=== PATIENT | female | born 1965 | race Caucasian/White ===

== ENCOUNTER 2016-08-15 22:42 | Emergency (ER) | payer OTHER ==
[~2016-08-15] VITALS: Ht 175.3 cm; Wt 76.1 kg
[~2016-08-15 22:42] MED LIST: ALBU6.7H INH; PRED20 PO; PRED50TA PO
[2016-08-15 22:59] VITALS: BP 133/88; PULSE 73; RESP 20; TEMP 98.2; O2SAT 98
--- NOTE | 2016-08-16 00:15 | PD ---
HPI Chief Complaint: Headache Time Seen by Provider: 23:31 Travel History International Travel<30 days: No Contact w/Intl Traveler<30days: No Traveled to known affect area: No History of Present Illness HPI The patient is a 50-year-old female that complains of a gradual onset headache beginning at 5:30 this morning on her left frontal and behind her left eye. She states it sometimes goes to the occipital area on the left. She does have photophobia without phonophobia. She denies any fever. She does have some nausea without vomiting. She states she may have some diarrhea, her stools are slightly loose. She smokes one pack a day. She denies any focal neurologic change. She denies any recent trauma. [facility] Past Medical History Asthma: Yes (as child) Depression: Yes Cancer: No Cardiovascular Problems: No Diminished Hearing: No Genitourinary: No Immune Disorder: No Musculoskeletal: No Neurologic: No Psychiatric: Yes (depression) Reproductive: No Tetanus Vaccination: Unknown Influenza Vaccination: No ?: Not Past Surgical History Appendectomy: Yes Cardiac Surgery: No Ear Surgery: No Endocrine Surgery: No Eye Surgery: No Genitourinary Surgery: No Gynecologic Surgery: No Oral Surgery: No Thoracic Surgery: No Other Surgery: Yes (appendix, lumpectomy rt. breast'92,left thumb'96) Social History Alcohol Use: Yes (OCC) Tobacco Use: Yes (ONE PPD) Substance Use: No Allergies-Medications (Allergen,Severity, Reaction): Coded Allergies: Penicillin (Verified Allergy, Severe, RASH, 08/15/16) Morphine (Verified Allergy, Intermediate, MAKES ME ILL, 08/15/16) Reported Meds & Prescriptions Reported Meds & Active Scripts Active No Active Prescriptions or Reported Medications Review of Systems Except as stated in HPI: all other systems reviewed are Neg Physical Exam Narrative GENERAL: Well-nourished, well-developed patient in moderate apparent distress with her left-sided headache. Her vital signs are normal. SKIN: Warm and dry. HEAD: Normocephalic. EYES: No scleral icterus. No injection or drainage. NECK: Supple, trachea midline. No JVD or lymphadenopathy. There is no meningismus and the patient can flex her neck so that the chin touches chest without any problem. CARDIOVASCULAR: Regular rate and rhythm without murmurs, gallops, or rubs. RESPIRATORY: Breath sounds equal bilaterally. No accessory muscle use. GASTROINTESTINAL: Abdomen soft, non-tender, nondistended. MUSCULOSKELETAL: No cyanosis, or edema. BACK: Nontender without obvious deformity. No CVA tenderness. ENT: The tympanic membranes are clear. I can completely reproduce the patient' s headache by pressing on the frontal and maxillary sinuses on the patient's left face. The right face is totally nontender. The throat is clear. Data Data Last Documented VS Vital Signs Date Time Temp Pulse Resp B/P Pulse Ox O2 Delivery O2 Flow Rate FiO2 08/16/16 00:40 72 125/85 Room Air 08/15/16 22:[address] Brain W/O Iv Contrast(Rout) (08/16/16 00:15) Complete Blood Count With Diff (08/16/16:23) Basic Metabolic Panel (Bmp) (08/16/16:23) Sodium Chlor 0.9% 1000 Ml Inj (Ns 1000 M (08/16/16 00:30) Ecg Monitoring (08/16/16 00:23) Iv Access Insert/Monitor (08/16/16:23) Oximetry (08/16/16:23) Sodium Chloride 0.9% Flush (Ns Flush) (08/16/16 00:30) Ketorolac Inj (Toradol Inj) (08/16/16 00:30) Prochlorperazine Inj (Compazine Inj) (08/16/16 00:30) Diphenhydramine Inj (Benadryl Inj) (08/16/16 00:30) Hydromorphone Pf Inj (Dilaudid Pf Inj) (08/16/16 00:30) Labs Laboratory Tests Test 08/16/16 00:25 White Blood Count 12.6 TH/MM3 Red Blood Count 4.66 MIL/MM3 Hemoglobin 14.1 GM/DL Hematocrit 41.8 % Mean Corpuscular Volume 89.6 FL Mean Corpuscular Hemoglobin 30.2 PG Mean Corpuscular Hemoglobin 33.7 % Concent Red Cell Distribution Width 12.3 % Platelet Count 306 TH/MM3 Mean Platelet Volume 7.7 FL Neutrophils (%) (Auto) 65.3 % Lymphocytes (%) (Auto) 24.6 % Monocytes (%) (Auto) 7.7 % Eosinophils (%) (Auto) 1.8 % Basophils (%) (Auto) 0.6 % Neutrophils # (Auto) 8.2 TH/MM3 Lymphocytes # (Auto) 3.1 TH/MM3 Monocytes # (Auto) 1.0 TH/MM3 Eosinophils # (Auto) 0.2 TH/MM3 Basophils # (Auto) 0.1 TH/MM3 CBC Comment DIFF FINAL Differential Comment Sodium Level 142 MEQ/L Potassium Level 3.7 MEQ/L Chloride Level 106 MEQ/L Carbon Dioxide Level 27.7 MEQ/L Anion Gap 8 MEQ/L Blood Urea Nitrogen 16 MG/DL Creatinine 0.80 MG/DL Estimat Glomerular Filtration 77 ML/MIN Rate Random Glucose 95 MG/DL Calcium Level 9.5 MG/DL MDM Medical Decision Making Medical Screen Exam Complete: Yes Emergency Medical Condition: Yes Medical Record Reviewed: Yes Interpretation(s) The CT scan of the brain is normal. Differential Diagnosis Migraine headache, tension headache, tension/migraine combination headache, normal pressure hydrocephalus, subarachnoid hemorrhagehighly unlikely Narrative Course The patient does have some symptoms that suggest migraine. This headache is not a thunderclap headache, it was gradual onset and localized behind the eye on the left. Some symptoms suggest sinusitis but the CT scan did not show sinusitis. The patient later stated that she gets a headache similar to this "once in a blue love". She does not want any medications to take at home. It is now 0119 and the patient's headache is completely gone. She will have her partner drive her home. Diagnosis Primary Impression: Migraine headache Additional Instructions: As we discussed, sleep the best you can and we will write her a work excuse for today. Follow-up with your primary care physician. This appears to be a migraine headache which you get apparently very infrequently. Med/Other Pt SpecificInfo: No Change to Meds Scripts No Active Prescriptions or Reported Meds Disposition: DISCHARGE HOME Condition: Stable Deejay Cooper MD Aug 16, 2016 00:15
[2016-08-16] MEDS ORDERED: PROCHLORPERAZINE INJ 10 MG/2 ML VIAL IVP ONE (00:30)
[2016-08-16] MEDS ORDERED: HYDROmorphone HCL PF 1 MG/ML VIAL IVS ONE (00:30)
[2016-08-16] MEDS ORDERED: KETOROLAC TROMETHAMINE 30 MG/ML (IVP) VIAL IVP ONE (00:30)
[2016-08-16] MEDS ORDERED: diphenhydrAMINE HCL 50 MG/ML VIAL IVP ONE (00:30)
[2016-08-16] MEDS ORDERED: SODIUM CHLORIDE 0.9% FLUSH 5 ML FLUSH IVF PRN (00:30)
--- NOTE | 2016-08-16 00:31 | RADHPO ---
EXAM DATE/TIME: 08/16/2016 00:09 [facility] COMPARISON: No previous studies available for comparison. INDICATIONS : Cephalgia. RADIATION DOSE: 60.20 CTDIvol (mGy) MEDICAL HISTORY : None SURGICAL HISTORY : None. ENCOUNTER: Initial ACUITY: 1 day PAIN SCALE: 10/10 LOCATION: Bilateral cranial TECHNIQUE: Multiple contiguous axial images were obtained of the head. Using automated exposure control and adj ustment of the mA and/or kV according to patient size, radiation dose was kept as low as reasonably a chievable to obtain optimal diagnostic quality images. FINDINGS: CEREBRUM: The ventricles are normal for age. No evidence of midline shift, mass lesion, hemorrhage or acute in farction. No extra-axial fluid collections are seen. POSTERIOR FOSSA: The cerebellum and brainstem are intact. The 4th ventricle is midline. The cerebellopontine angle i s unremarkable. EXTRACRANIAL: The visualized portion of the orbits is intact. SKULL: The calvaria is intact. No evidence of skull fracture. CONCLUSION: Normal examination. Antonio Benavides MD on August 16, 2016 at 0:27 Board Certified Radiologist. This report was verified electronically.
[2016-08-16] MEDS: SODIUM CHLOR 0.9% 1000 ML INJ 1,000 ML IV SCH ×2 (00:35→01:20)
[2016-08-16 00:40] VITALS: BP 125/85; PULSE 72
[2016-08-16 00:45] LABS: AUTOMATED NEUTROPHIL # 8.2 TH/MM3 (1.8-7.7); BASOPHIL # 0.1 TH/MM3 (0-0.2); BASOPHIL % 0.6 % (0.0-2.0); EOSINOPHIL # 0.2 TH/MM3 (0-0.4); EOSINOPHIL % 1.8 % (0.0-4.0); HEMATOCRIT 41.8 % (35.0-46.0); LYMPH % 24.6 % (9.0-44.0); LYMPHOCYTE # 3.1 TH/MM3 (1.0-4.8); MEAN CELL VOLUME 89.6 FL (80.0-100.0); MEAN CORPUSCULAR HEMOGLOBIN 30.2 PG (27.0-34.0); MEAN CORPUSCULAR HGB CONC 33.7 % (32.0-36.0); MONO % 7.7 % (0.0-8.0); NEUT % 65.3 % (16.0-70.0); PLATELET COUNT 306 TH/MM3 (150-450); RED BLOOD COUNT 4.66 MIL/MM3 (4.00-5.30); RED CELL DISTRIBUTION WIDTH 12.3 % (11.6-17.2); WHITE BLOOD COUNT 12.6 TH/MM3 (4.0-11.0)
[2016-08-16 00:51] LABS: HEMO FLAGS DIFF FINAL; POTASSIUM 3.7 MEQ/L (3.5-5.1)
[2016-08-16 00:54] LABS: BICARBONATE 27.7 MEQ/L (21.0-32.0)
== END 2016-08-16 01:35 | disposition home or self-care (01) ==
LOC: PHED 22:42
DX: G43.909 Migraine, unspecified, not intractable, without status migrainosus (principal); F17.210 Nicotine dependence, cigarettes, uncomplicated
CPT/HCPCS: 70450; 80048; 85025; 96361; 96374; 96375; 99284; J0780; J1170; J1200; J1885; J7030